=== PATIENT | male | born 1980 | race Caucasian/White ===

== ENCOUNTER 2016-06-11 17:11 | Emergency (ER) | payer MEDICAID, OTHER ==
[~2016-06-11] VITALS: Ht 188 cm; Wt 105.5 kg
[2016-06-11 17:26] VITALS: Ht 188 cm; Wt 105.5 kg
[2016-06-11] MEDS ORDERED: CLINDAMYCIN 300 MG INJ IM ONE (20:30)
--- NOTE | 2016-06-11 20:32 | ERD ---
ER Documentation Chief Complaint Date/Time DATE: 06/11/16 TIME: 20:28 Chief Complaint PT HAS INSECT BITE X 9 DAYS LEFT KNEE , RED AND SWOLLEN PAIN 9/10 HPI This is a 35-year-old male who presents the emergency department today complaining of left knee redness and swelling for the past 9 days. Patient states that he went to his clinic on Thursday and was given Naprosyn for gout. States he has not taken any other medications. Denies any fevers or chills. ROS All systems reviewed and are negative except as per history of present illness. Medications Home Meds Active Scripts Hydrocodone/Acetaminophen ([place] 5-325 Tablet) 1 Each Tablet, 1 TAB PO Q6H Y for PAIN, #12 TAB Prov:HANK LACY PA-C 06/11/16 Cephalexin* (Keflex*) 500 Mg Capsule, 500 MG PO QID for 7 Days, CAP Prov:HANK LACY PA-C 06/11/16 Sulfamethoxazole/Trimethoprim (Bactrim Ds Tablet) 1 Each Tablet, 1 EACH PO BID for 7 Days, TAB Prov:HANK LACY PA-C 06/11/16 PMhx/Soc Medical and Surgical Hx: pt denies Surgical Hx Hx Cardiac Disorders: Yes (HTN) Hx Alcohol Use: No Hx Substance Use: No Hx Tobacco Use: No Smoking Status: Never smoker Physical Exam Vitals Vital Signs Date Time Temp Pulse Resp B/P Pulse Ox O2 Delivery O2 Flow Rate FiO2 06/11/16 17:26 99.5 76 17 159/95 97 Physical Exam Const: NAD Head: Atraumatic Eyes: Normal Conjunctiva ENT: Normal External Ears, Nose and Mouth. Neck: Full range of motion..~ No meningismus. Resp: Clear to auscultation bilaterally Cardio: Regular rate and rhythm, no murmurs Abd: Soft, non tender, non distended. Normal bowel sounds Skin: Left knee with evidence of cellulitis beginning around the medial aspect of the knee and localized warmth. No purulent drainage. Back: No midline or flank tenderness Ext left leg lower extremity swelling over tibia. Full active range of motion at knee. Nontender gastroc. Pulses 2+. Distal neurovascularly intact. Evidence of cellulitis. Neur: Awake and alert Psych: Normal Mood and Affect Results 24 hrs Current Medications Medications (Trade) Dose Ordered Sig/Cade Route PRN Reason Start Time Stop Time Status Last Admin Dose Admin Clindamycin Phosphate (Cleocin) 600 mg ONCE ONCE IM 06/11/16 20:30 06/11/16 20:31 DC Procedures/MDM This is a 35-year-old male who presents to the emergency department today complaining of left leg redness and swelling for the past 9 days. I did see this patient in RN knee and determined that he needed further intervention. Patient had originally been seen at his clinic on Thursday and was diagnosed with gout given Naprosyn. Patient has full active range of motion of his knee and I have low suspicion for septic joint or gout. He is afebrile and otherwise well-appearing. Do not feel he requires laboratory work at this time. He does have some lower extremity swelling however he has good pulses and he has no calf tenderness and I have low suspicion that he has a DVT. Patient does have an area of localized erythema and warmth consistent with cellulitis. Low suspicion for deep space infection, sepsis. Do not feel the patient requires a Doppler ultrasound at this time. He is not short of breath. His oxygen saturation is 97% and he is not tachycardic. patient was given IM clindamycin here in the emergency department. Patient will begin a prescription for Bactrim and Keflex and instructed to return in 2 days. I did blaine the area and instruct him to return sooner if the area continues to spread or his symptoms worsen or he develops a fever. Patient was also given a prescription for [place] for severe pain otherwise he may continue taking his Naprosyn or Tylenol or Motrin. At this time the patient is stable for discharge and outpatient management. Patient should follow up with their PCP in the next 1-2 days. They may return to the emergency department sooner for any persistent or worsening of symptoms. Patient understood and agreed with the plan. Departure Diagnosis: Primary Impression: Cellulitis Site of cellulitis: extremity Site of cellulitis of extremity: lower extremity Laterality: left Qualified Code: L03.116 - Cellulitis of left lower extremity Condition: HANK Patel PA-C Jun 11, 2016 20:31
[2016-06-11] MEDS ORDERED: CEPH-443 PO (20:33)
[2016-06-11] MEDS ORDERED: SULF1TAB31 PO (20:33)
[2016-06-11] MEDS ORDERED: HYDR-906 PO (20:35)
[2016-06-11 21:51] VITALS: BP 161/97; PULSE 75; RESP 16; TEMP 98.8
== END 2016-06-11 21:52 | disposition home or self-care (01) ==
LOC: FTE 17:11
DX: L03.116 Cellulitis of left lower limb (principal); I10 Essential (primary) hypertension
CPT/HCPCS: 96372

== ENCOUNTER 2016-06-13 18:22 | Inpatient (IN) | payer MEDICAID ==
[~2016-06-13] VITALS: Ht 185.4 cm; Wt 103.0 kg
[~2016-06-13 18:22] MED LIST: CEPH-443 PO; HYDR-906 PO; SULF1TAB31 PO
[2016-06-13 18:31] VITALS: Ht 185.4 cm; Wt 103.0 kg
[2016-06-13] MEDS ORDERED: DICLOFENAC SODIUM 37.5 MG/ML VIAL IV STA (21:36)
[2016-06-13] MEDS ORDERED: morphine 4 MG/ML VIAL IV STA ×2 (21:36→23:52)
[2016-06-13] MEDS ORDERED: HYD25 PO (21:51)
[2016-06-13] MEDS ORDERED: PIPER-TAZO 3.375 GM IV (PMX) 100 ML IVPB ONE (22:00)
[2016-06-13] MEDS ORDERED: VANCOMYCIN 1 GM (PMX) 250 ML IVPB ONE (22:00)
[2016-06-13 22:53] LABS: ADD SCAN DIFF NO
[2016-06-13 23:03] LABS: BASOPHILS % 0.3 % (0.0-2.0); EOSINOPHILS # 0.2 10^3/ul (0.0-0.5); EOSINOPHILS % 1.9 % (0.0-7.0); HEMATOCRIT 41.7 % (42.0-52.0); LYMPHOCYTES # 2.2 10^3/ul (0.8-2.9); LYMPHOCYTES % 17.4 % (15.0-51.0); MEAN CORPUSCULAR HEMOGLOBIN 29.4 pg (29.0-33.0); MEAN CORPUSCULAR HGB CONC 33.6 g/dl (32.0-37.0); MEAN CORPUSCULAR VOLUME 87.6 fl (82.0-101.0); MEAN PLATELET VOLUME 9.3 fl (7.4-10.4); MONOCYTE # 1.1 10^3/ul (0.3-0.9); MONOCYTES % 8.7 % (0.0-11.0); NEUTROPHIL # 8.9 10^3/ul (1.6-7.5); NEUTROPHILS % 69.3 % (39.0-77.0); PLATELET COUNT 424 10^3/UL (140-415); RED BLOOD COUNT 4.76 10^6/ul (4.70-6.10); RED CELL DISTRIBUTION WIDTH 12.2 % (11.5-14.5); WHITE BLOOD COUNT 12.8 10^3/ul (4.8-10.8)
--- NOTE | 2016-06-13 23:22 | RADRPT ---
PROCEDURE: LEFT KNEE - 3 VIEWS CLINICAL INDICATION: 35-year-old male with left knee pain and cellulitis. TECHNIQUE: AP, lateral and tunnel view of the left knee were obtained. The images reviewed on a [employer] workstation. COMPARISON: None. FINDINGS: The bones appear intact, with no evidence of fracture, erosion, demineralization, or dislocation. Th e alignment of the femorotibial and patellofemoral joints appears normal. No joint space narrowing i s seen. There is prepatellar soft tissue swelling. No radiopaque foreign body is seen. IMPRESSION: 1. No acute fracture or dislocation. 2. Prepatellar soft tissue swelling. .Charlie Bautista MD, MD Date Time Electronically viewed and signed by .Charlie Bautista MD, on 06/13/2016 23:22 .M/
[2016-06-13 23:25] LABS: ALBUMIN 4.2 g/dl (3.3-4.9); ALBUMIN/GLOBULIN RATIO 1.07; BILIRUBIN,INDIRECT 0.3 mg/dl (0-1.1); BILIRUBIN,TOTAL 0.3 mg/dl (0.2-1.3); CALCIUM 9.4 mg/dl (8.4-10.2); CREATININE 1.35 mg/dl (0.61-1.24); POTASSIUM 3.7 mmol/L (3.5-5.1); TOTAL PROTEIN 8.1 g/dl (6.1-8.1)
[2016-06-14] MEDS ORDERED: ONDANSETRON 4 MG INJ IV PRN
[2016-06-14] MEDS ORDERED: DIPHENHYDRAMINE 50 MG CAP PO ONE
--- NOTE | 2016-06-14 00:04 | HP ---
Date/Time of Note Date/Time of Note DATE: 06/14/16 TIME: 00:02 Assessment/Plan VTE Prophylaxis VTE Prophylaxis Intervention: other (Lovenox) Assessment/Plan Assessment/Plan 1) Cellulitis of right leg with Leukocytosis s/p Failure of outpatient treatment - ADMIT to Med/Surg - IV Antibiotics 2) Leukocytosis - AM Labs: CBC 2) Renal insufficiency - IV Hydration - AM Labs: BMP HPI/ROS Admit Date/Time Admit Date/Time 06/13/16 Hx of Present Illness 35-year-old male comes for a week of right leg redness beginning along the lateral margin of the knee and upper leg and moving down. Had been seen in the clinic but had diagnosed him with gout. 2 days ago he came to the emergency room and received the appropriate outpatient therapy of Bactrim and Keflex. He also had marked. Joining around the demarcation of the infection. Is now spread down to almost the level of his ankle. He is also having some subjective fevers and chills at home. He does not have any pain on loadbearing but does have pain when he bends the knee because it is swollen. He has no history of diabetes or any other immunocompromise state. ER Course per ER Physician: None circumferential cellulitis right leg that is failed outpatient treatment has been spreading inferiorly. Now with mildly elevated white blood cell count and renal insufficiency. Vital signs are stable. Give the patient IV fluid as well as vancomycin and Zosyn to cover for anaerobic infection as well as MRSA. I believe septic joint is less likely an joint aspiration is contraindicated because the cellulitis does surround the anterior portion of the knee. He will be admitted to the [facility] floor for further treatment and evaluation with possible orthopedic involvement. PMH/Family/Social Past Medical History Medical History: hypertension Past Surgical History Left FA Social History Alcohol Use: none Smoking Status: Never smoker Drug Use: none Exam/Review of Systems Vital Signs Vitals Vital Signs Date Time Temp Pulse Resp B/P Pulse Ox O2 Delivery O2 Flow Rate FiO2 06/13/16 22:39 79 14 141/97 97 06/13/16 18:31 98.7 Exam Exam General: WD/WN male, alert and oriented, in no acute distress Eyes: Sclera White, EOMI HENT: Normocephalic/Atraumatic, External Ears/Nose Normal, Moist Mucus Membranes Neck: Supple, Trachea Midline Cardiovascular: Normal Rate, Regular Rhythm, Normal S1 and S2, No Murmur, No Extra Sounds. Radial pulse +2/4 Pulmonary: Clear to Auscultation Bilaterally, Normal Respiratory Effort, No Rales, Rhonchi or Wheezes Gastrointestinal: Normoactive Bowel Sounds, Soft, Non-Tender/Non-Distended, No Hepatosplenomegaly Appreciated, No Pulsatile Masses Urogenital: Deferred Musculoskeletal: Normal Muscle Bulk and Tone Neurological: CN II - XII Grossly Intact, Non-Focal, Speech Normal Integumentary: Normal Moisture and Temperature, Good Turgor, No Jaundice, Right leg with edema surrounding the right knee with erythema and calor extending from the level just above the knee down to the lower anterior anderson Lymphatic: No Cervical Lymphadenopathy Psychiatric: Appropriate Mood and Affect, Good Eye Contact Labs Result Diagram: 06/13/16219906/13/162199 Medications Medications Home Meds Active Scripts Hydrocodone/Acetaminophen ([place] 5-325 Tablet) 1 Each Tablet, 1 TAB PO Q6H Y for PAIN, #12 TAB Prov:HANK LACY PA-C 06/11/16 Cephalexin* (Keflex*) 500 Mg Capsule, 500 MG PO QID for 7 Days, CAP Prov:HANK LACY PA-C 06/11/16 Sulfamethoxazole/Trimethoprim* (Bactrim Ds* Tablet) 1 Each Tablet, 1 EACH PO BID for 7 Days, TAB Prov:HANK LACY PA-C 06/11/16 Reported Medications Hydrochlorothiazide* (Hydrochlorothiazide*) 25 Mg Tab, 25 MG PO DAILY, #30 TAB 06/13/16 Current Medications Medications (Trade) Dose Ordered Sig/Cade Route PRN Reason Start Time Stop Time Status Last Admin Dose Admin Vancomycin HCl (Vancocin) 250 ml @ 125 mls/hr ONCE ONCE IVPB 06/13/16 22:00 06/13/16 23:59 DC 06/13/16 21:55 Diclofenac Sodium 37.5 mg 37.5 mg ONCE STAT IV 06/13/16 21:36 06/13/16 21:41 DC 06/13/16 21:56 Piperacillin Sod/ Tazobactam Sod (Zosyn 3.375gm/ 100 ml (Pmx)) 100 ml @ 200 mls/hr ONCE ONCE IVPB 06/13/16 22:00 06/13/16 22:29 DC 06/13/16 21:55 Morphine Sulfate (morphine) 4 mg ONCE STAT IV 06/13/16 21:36 06/13/16 21:41 DC 06/13/16 21:56 Ondansetron HCl (Zofran Inj) 4 mg BRIDGE ORDER PRN IV NAUSEA AND/OR VOMITING 06/14/16 00:00 06/14/16 23:59 Acetaminophen (Tylenol Tab) 650 mg ER BRIDGE PRN PO MILD PAIN/FEVER 06/14/16 00:00 06/14/16 23:59 Morphine Sulfate (morphine) 4 mg ONCE STAT IV 06/13/16 23:52 06/13/16 23:55 DC Procedures Procedures Laboratory Tests Test 06/13/16 22:00 White Blood Count 12.810^3/ul Red Blood Count 4.7610^6/ul Hemoglobin 14.0g/dl Hematocrit 41.7% Mean Corpuscular Volume 87.6fl Mean Corpuscular Hemoglobin 29.4pg Mean Corpuscular Hemoglobin Concent 33.6g/dl Red Cell Distribution Width 12.2% Platelet Count 83437^3/UL Mean Platelet Volume 9.3fl Neutrophils % 69.3% Lymphocytes % 17.4% Monocytes % 8.7% Eosinophils % 1.9% Basophils % 0.3% Nucleated Red Blood Cells % 0.0/100WBC Neutrophils # 8.910^3/ul Lymphocytes # 2.210^3/ul Monocytes # 1.110^3/ul Eosinophils # 0.210^3/ul Basophils # 0.010^3/ul Nucleated Red Blood Cells # 0.010^3/ul Sodium Level 135mmol/L Potassium Level 3.7mmol/L Chloride Level 95mmol/L Carbon Dioxide Level 28mmol/L Anion Gap 16 Blood Urea Nitrogen 20mg/dl Creatinine 1.35mg/dl Glucose Level 102mg/dl Calcium Level 9.4mg/dl Total Bilirubin 0.3mg/dl Direct Bilirubin 0.00mg/dl Indirect Bilirubin 0.3mg/dl Aspartate Amino Transf (AST/SGOT) 30IU/L Alanine Aminotransferase (ALT/SGPT) 53IU/L Alkaline Phosphatase 88IU/L Total Protein 8.1g/dl Albumin 4.2g/dl Globulin 3.90g/dl Albumin/Globulin Ratio 1.07 PROCEDURE: LEFT KNEE - 3 VIEWS CLINICAL INDICATION: 35-year-old male with left knee pain and cellulitis. TECHNIQUE: AP, lateral and tunnel view of the left knee were obtained. The images reviewed on a PACS workstation. COMPARISON: None. FINDINGS: The bones appear intact, with no evidence of fracture, erosion, demineralization , or dislocation. The alignment of the femorotibial and patellofemoral joints appears normal. No joint space narrowing is seen. There is prepatellar soft tissue swelling. No radiopaque foreign body is seen. IMPRESSION: 1. No acute fracture or dislocation. 2. Prepatellar soft tissue swelling. FARZANA CASTRO DO Jun 14, 2016 00:04 Gastrointestinal: Normoactive Bowel Sounds, Soft, Non-Tender/Non-Distended, No Hepatosplenomegaly Appreciated, No Pulsatile Masses Urogenital: Deferred Musculoskeletal: Normal Muscle Bulk and Tone Neurological: CN II - XII Grossly Intact, Non-Focal, Speech Normal Integumentary: Normal Moisture and Temperature, Good Turgor, No Jaundice, No Rash Lymphatic: No Cervical Lymphadenopathy Psychiatric: Appropriate Mood and Affect, Good Eye Contact Labs Result Diagram: 06/13/16219906/13/162199 Procedures Procedures PROCEDURE: LEFT KNEE - 3 VIEWS CLINICAL INDICATION: 35-year-old male with left knee pain and cellulitis. TECHNIQUE: AP, lateral and tunnel view of the left knee were obtained. The images reviewed on a PACS workstation. COMPARISON: None. FINDINGS: The bones appear intact, with no evidence of fracture, erosion, demineralization , or dislocation. The alignment of the femorotibial and patellofemoral joints appears normal. No joint space narrowing is seen. There is prepatellar soft tissue swelling. No radiopaque foreign body is seen.
--- NOTE | 2016-06-14 00:42 | ERA ---
ER Documentation Chief Complaint Date/Time DATE: 06/14/16 TIME: 00:13 Chief Complaint swelling/redness right lower leg, here 2 days ago, states getting worse HPI 35-year-old male comes for a week of right leg redness beginning along the lateral margin of the knee and upper leg and moving down. Had been seen in the clinic but had diagnosed him with gout. 2 days ago he came to the emergency room and received the appropriate outpatient therapy of Bactrim and Keflex. He also had marked. Joining around the demarcation of the infection. Is now spread down to almost the level of his ankle. He is also having some subjective fevers and chills at home. He does not have any pain on loadbearing but does have pain when he bends the knee because it is swollen. He has no history of diabetes or any other immunocompromise state. ROS All systems reviewed and are negative except as per history of present illness. Medications Home Meds Active Scripts Hydrocodone/Acetaminophen ([place] 5-325 Tablet) 1 Each Tablet, 1 TAB PO Q6H Y for PAIN, #12 TAB Prov:HANK LACY PA-C 06/11/16 Cephalexin* (Keflex*) 500 Mg Capsule, 500 MG PO QID for 7 Days, CAP Prov:HANK ALCY PA-C 06/11/16 Sulfamethoxazole/Trimethoprim* (Bactrim Ds* Tablet) 1 Each Tablet, 1 EACH PO BID for 7 Days, TAB Prov:HANK LACY PA-C 06/11/16 Reported Medications Hydrochlorothiazide* (Hydrochlorothiazide*) 25 Mg Tab, 25 MG PO DAILY, #30 TAB 06/13/16 Allergies Allergies: Coded Allergies: No Known Drug Allergies (Verified Allergy, Unknown, 06/13/16) PMhx/Soc History of Surgery: Yes (left FA sx) Anesthesia Reaction: No Hx Neurological Disorder: No Hx Respiratory Disorders: No Hx Cardiac Disorders: Yes (HTN) Hx Psychiatric Problems: No Hx Miscellaneous Medical Probl: No Hx Alcohol Use: No Hx Substance Use: No Hx Tobacco Use: No Smoking Status: Never smoker Physical Exam Vitals Vital Signs Date Time Temp Pulse Resp B/P Pulse Ox O2 Delivery O2 Flow Rate FiO2 06/13/16 22:39 79 14 141/97 97 06/13/16 18:31 98.7 92 20 148/82 98 Physical Exam Const: [] No distress Head: Atraumatic Eyes: Normal Conjunctiva ENT: Normal External Ears, Nose and Mouth. Neck: Full range of motion..~ No meningismus. Resp: Clear to auscultation bilaterally Cardio: Regular rate and rhythm, no murmurs Abd: Soft, non tender, non distended. Normal bowel sounds Skin: No petechiae or rashes Back: No midline or flank tenderness Ext: Right leg with edema surrounding the right knee with erythema and calor extending from the level just above the knee down to the lower anterior anderson. Distal pulses intact all 4 extremities. Neur: Awake and alert and oriented 3, no focal deficits. Psych: Normal Mood and Affect Result Diagram: 06/13/16219906/13/162199 Results 24 hrs Laboratory Tests Test 06/13/16 22:00 White Blood Count 12.810^3/ul Red Blood Count 4.7610^6/ul Hemoglobin 14.0g/dl Hematocrit 41.7% Mean Corpuscular Volume 87.6fl Mean Corpuscular Hemoglobin 29.4pg Mean Corpuscular Hemoglobin Concent 33.6g/dl Red Cell Distribution Width 12.2% Platelet Count 20310^3/UL Mean Platelet Volume 9.3fl Neutrophils % 69.3% Lymphocytes % 17.4% Monocytes % 8.7% Eosinophils % 1.9% Basophils % 0.3% Nucleated Red Blood Cells % 0.0/100WBC Neutrophils # 8.910^3/ul Lymphocytes # 2.210^3/ul Monocytes # 1.110^3/ul Eosinophils # 0.210^3/ul Basophils # 0.010^3/ul Nucleated Red Blood Cells # 0.010^3/ul Sodium Level 135mmol/L Potassium Level 3.7mmol/L Chloride Level 95mmol/L Carbon Dioxide Level 28mmol/L Anion Gap 16 Blood Urea Nitrogen 20mg/dl Creatinine 1.35mg/dl Glucose Level 102mg/dl Calcium Level 9.4mg/dl Total Bilirubin 0.3mg/dl Direct Bilirubin 0.00mg/dl Indirect Bilirubin 0.3mg/dl Aspartate Amino Transf (AST/SGOT) 30IU/L Alanine Aminotransferase (ALT/SGPT) 53IU/L Alkaline Phosphatase 88IU/L Total Protein 8.1g/dl Albumin 4.2g/dl Globulin 3.90g/dl Albumin/Globulin Ratio 1.07 Current Medications Medications (Trade) Dose Ordered Sig/Cade Route PRN Reason Start Time Stop Time Status Last Admin Dose Admin Vancomycin HCl (Vancocin) 250 ml @ 125 mls/hr ONCE ONCE IVPB 06/13/16 22:00 06/13/16 23:59 DC 06/13/16 21:55 Diclofenac Sodium 37.5 mg 37.5 mg ONCE STAT IV 06/13/16 21:36 06/13/16 21:41 DC 06/13/16 21:56 Piperacillin Sod/ Tazobactam Sod (Zosyn 3.375gm/ 100 ml (Pmx)) 100 ml @ 200 mls/hr ONCE ONCE IVPB 06/13/16 22:00 06/13/16 22:29 DC 06/13/16 21:55 Morphine Sulfate (morphine) 4 mg ONCE STAT IV 06/13/16 21:36 06/13/16 21:41 DC 06/13/16 21:56 Ondansetron HCl (Zofran Inj) 4 mg BRIDGE ORDER PRN IV NAUSEA AND/OR VOMITING 06/14/16 00:00 06/14/16 23:59 Acetaminophen (Tylenol Tab) 650 mg ER BRIDGE PRN PO MILD PAIN/FEVER 06/14/16 00:00 06/14/16 23:59 Morphine Sulfate (morphine) 4 mg ONCE STAT IV 06/13/16 23:52 06/13/16 23:55 DC Procedures/MDM None circumferential cellulitis right leg that is failed outpatient treatment has been spreading inferiorly. Now with mildly elevated white blood cell count and renal insufficiency. Vital signs are stable. Give the patient IV fluid as well as vancomycin and Zosyn to cover for anaerobic infection as well as MRSA. I believe septic joint is less likely an joint aspiration is contraindicated because the cellulitis does surround the anterior portion of the knee. [facility] for further treatment and evaluation with possible orthopedic involvement. X-ray right knee interpretation: No fracture dislocation, soft tissue swelling superior to the patella. Departure Diagnosis: Primary Impression: Cellulitis of right leg Additional Impressions: Failure of outpatient treatment Renal insufficiency Condition: Stable DENA CURRAN DO Jun 14, 2016 00:42
[2016-06-14] MEDS ORDERED: SOD CHLORIDE 0.9% 1,000 ML IV ONE (01:00)
[2016-06-14 01:36] VITALS: TEMP 97.9
[2016-06-14] MEDS ORDERED: VANCOMYCIN IV PER PHARMACY XX SCH (02:00)
[2016-06-14] MEDS ORDERED: VANCOMYCIN 1 GM in NS 250 ML IVPB ONE (02:00)
[2016-06-14] MEDS ORDERED: OXYCODONE/ACETAMINOPHEN (5/325) TAB PO PRN (02:00)
[2016-06-14] MEDS ORDERED: ACETAMINOPHEN 325 MG TAB PO PRN ×2 (02:00)
[2016-06-14] MEDS ORDERED: NACL 0.9% 3 ML SYG IV SCH (02:00)
[2016-06-14] MEDS ORDERED: ONDANSETRON 4 MG TAB PO PRN (02:00)
[2016-06-14 03:41] VITALS: BP 160/90; RESP 18
[2016-06-14] MEDS: PIPER-TAZO 3.375 GM IV (PMX) 100 ML IVPB SCH ×3 (05:48→17:43)
[2016-06-14 07:46] VITALS: BP 141/83; RESP 18
[2016-06-14] MEDS: VANCOMYCIN 1.5 GM in SOD CHLORIDE 0.9% 250 ML IVPB SCH ×2 (08:33→20:42)
[2016-06-14] MEDS: FAMOTIDINE 20 MG TAB PO SCH ×2 (08:33→20:41)
[2016-06-14] MEDS: HYDROCHLOROTHIAZIDE 25 MG TAB PO SCH (08:34)
[2016-06-14] MEDS: ENOXAPARIN 40 MG/0.4 ML SYG SC SCH (08:40)
[2016-06-14] MEDS: OXYCODONE/ACETAMINOPHEN (5/325) TAB PO PRN ×2 (13:32→20:41)
[2016-06-14 19:31] VITALS: BP 148/88; PULSE 69; RESP 18
[2016-06-15] MEDS: PIPER-TAZO 3.375 GM IV (PMX) 100 ML IVPB SCH ×4 (00:13→17:31)
[2016-06-15 05:57] LABS: ADD SCAN DIFF NO
[2016-06-15 06:13] LABS: CALCIUM 8.8 mg/dl (8.4-10.2); CREATININE 1.17 mg/dl (0.61-1.24); POTASSIUM 4.7 mmol/L (3.5-5.1)
[2016-06-15 07:55] VITALS: BP 130/80; RESP 18
[2016-06-15] MEDS: OXYCODONE/ACETAMINOPHEN (5/325) TAB PO PRN ×2 (08:15→17:33)
[2016-06-15] MEDS: FAMOTIDINE 20 MG TAB PO SCH ×2 (08:15→20:36)
[2016-06-15] MEDS: HYDROCHLOROTHIAZIDE 25 MG TAB PO SCH (08:16)
[2016-06-15] MEDS: ENOXAPARIN 40 MG/0.4 ML SYG SC SCH (09:00)
[2016-06-15 09:45] LABS: BASOPHILS % 0.3 % (0.0-2.0); EOSINOPHILS # 0.3 10^3/ul (0.0-0.5); EOSINOPHILS % 2.9 % (0.0-7.0); HEMATOCRIT 40.6 % (42.0-52.0); HEMOGLOBIN 13.1 g/dl (14.0-18.0); LYMPHOCYTES # 1.9 10^3/ul (0.8-2.9); LYMPHOCYTES % 18.5 % (15.0-51.0); MEAN CORPUSCULAR HEMOGLOBIN 28.9 pg (29.0-33.0); MEAN CORPUSCULAR HGB CONC 32.3 g/dl (32.0-37.0); MEAN CORPUSCULAR VOLUME 89.6 fl (82.0-101.0); MEAN PLATELET VOLUME 9.8 fl (7.4-10.4); MONOCYTE # 0.9 10^3/ul (0.3-0.9); MONOCYTES % 8.5 % (0.0-11.0); NEUTROPHIL # 7.1 10^3/ul (1.6-7.5); NEUTROPHILS % 68.1 % (39.0-77.0); PLATELET COUNT 413 10^3/UL (140-415); RED BLOOD COUNT 4.53 10^6/ul (4.70-6.10); RED CELL DISTRIBUTION WIDTH 12.6 % (11.5-14.5); WHITE BLOOD COUNT 10.4 10^3/ul (4.8-10.8)
[2016-06-15] MEDS: VANCOMYCIN 1.5 GM in SOD CHLORIDE 0.9% 250 ML IVPB SCH ×2 (10:20→20:36)
--- NOTE | 2016-06-15 17:35 | PN ---
Date/Time of Note Date/Time of Note DATE: 06/15/16 TIME: 17:28 Assessment/Plan VTE Prophylaxis VTE Prophylaxis Intervention: LMWH Lines/Catheters IV Catheter Type (from Nrs): Saline Lock Assessment/Plan Chief Complaint/Hosp Course 1. Cellulitis of right leg -cont Abx -consider Ortho consult for I+D 2. DULCE MARIA-resolved PPx- Lovenox Problems: Subjective 24 Hr Interval Summary Constitutional: no complaints Musculoskeletal: bone/joint pain Exam/Review of Systems Vital Signs Vitals Vital Signs Date Time Temp Pulse Resp B/P Pulse Ox O2 Delivery O2 Flow Rate FiO2 06/15/16 07:55 98.1 64 18 130/80 100 06/14/16 19:31 Room Air Intake and Output 06/14/16 06/14/16 06/15/16 15:00 23:00 07:00 Intake Total 350 ml 1540 ml 450 ml Balance 350 ml 1540 ml 450 ml Exam Constitutional: alert, oriented Respiratory: clear to auscultation Cardiovascular: regular rate and rhythm Gastrointestinal: soft, No distended Musculoskeletal: No nl extremities to inspection Results Result Diagram: 06/15/16 0500 06/15/16 0500 Results 24 hrs Laboratory Tests Test 06/15/16 05:00 06/15/16 08:35 White Blood Count 10.4 Red Blood Count 4.53 L Hemoglobin 13.1 L Hematocrit 40.6 L Mean Corpuscular Volume 89.6 Mean Corpuscular Hemoglobin 28.9 L Mean Corpuscular Hemoglobin Concent 32.3 Red Cell Distribution Width 12.6 Platelet Count 413 Mean Platelet Volume 9.8 Neutrophils % 68.1 Lymphocytes % 18.5 Monocytes % 8.5 Eosinophils % 2.9 Basophils % 0.3 Nucleated Red Blood Cells % 0.0 Neutrophils # 7.1 Lymphocytes # 1.9 Monocytes # 0.9 Eosinophils # 0.3 Basophils # 0.0 Nucleated Red Blood Cells # 0.0 Sodium Level 137 Potassium Level 4.7 Chloride Level 103 Carbon Dioxide Level 29 Anion Gap 10 # Blood Urea Nitrogen 15 Creatinine 1.17 Glucose Level 95 Calcium Level 8.8 Vancomycin Level Trough 11.6 Medications Medications Current Medications Ondansetron HCl (Zofran Tab) 4 mg Q6H PRN PO NAUSEA AND/OR VOMITING; Start at 02:00 Acetaminophen (Tylenol Tab) 650 mg Q6H PRN PO PAIN LEVEL 1-3 OR FEVER; Start at 02:00 Oxycodone/ Acetaminophen (Percocet (5/ 325)) 1 tab Q6H PRN PO MODERATE PAIN LEVEL 4-6; Start 06/14/16 at 02:00 Oxycodone/ Acetaminophen (Percocet (5/ 325)) 2 tab Q6H PRN PO SEVERE PAIN LEVEL 7-10 Last administered on 06/15/16 08:15; Admin Dose 2 TAB; Start at 02:00 Famotidine (Pepcid) 20 mg Q12 PO Last administered on 06/15/16 08:15; Admin Dose 20 MG; Start 06/14/16 at 09:00 Enoxaparin Sodium (Lovenox) 40 mg DAILY SC Last administered on 06/15/16 09:00 ; Admin Dose 40 MG; Start 06/14/16 at 09:00 Hydrochlorothiazide 25 mg 25 mg DAILY PO Last administered on 06/15/16 08:16; Admin Dose 25 MG; Start 06/14/16 at 09:00 Piperacillin Sod/ Tazobactam Sod 100 ml @ 200 mls/hr Q6 IVPB Last administered on 06/15/16 13:24; Admin Dose 200 MLS/HR; Start 06/14/16 at 06:00 Vancomycin HCl/ Sodium Chloride (Vancocin/NS) 250 ml @ 83.333 mls/ hr Q12H IVPB Last administered on 06/15/16 10:20; Admin Dose 83.333 MLS/HR; Start at 09:00 LUCA JACOBO Jun 15, 2016 17:35
[2016-06-15 20:00] VITALS: BP 142/94; PULSE 64; RESP 18
[2016-06-16] MEDS: PIPER-TAZO 3.375 GM IV (PMX) 100 ML IVPB SCH ×4 (00:25→18:06)
[2016-06-16 05:32] LABS: ADD SCAN DIFF NO
[2016-06-16 05:36] LABS: BASOPHILS % 0.3 % (0.0-2.0); EOSINOPHILS # 0.3 10^3/ul (0.0-0.5); EOSINOPHILS % 2.9 % (0.0-7.0); HEMATOCRIT 39.3 % (42.0-52.0); HEMOGLOBIN 13.2 g/dl (14.0-18.0); LYMPHOCYTES # 1.9 10^3/ul (0.8-2.9); LYMPHOCYTES % 16.3 % (15.0-51.0); MEAN CORPUSCULAR HEMOGLOBIN 29.8 pg (29.0-33.0); MEAN CORPUSCULAR HGB CONC 33.6 g/dl (32.0-37.0); MEAN CORPUSCULAR VOLUME 88.7 fl (82.0-101.0); MEAN PLATELET VOLUME 9.1 fl (7.4-10.4); MONOCYTE # 0.8 10^3/ul (0.3-0.9); MONOCYTES % 6.9 % (0.0-11.0); NEUTROPHIL # 8.3 10^3/ul (1.6-7.5); NEUTROPHILS % 72.4 % (39.0-77.0); PLATELET COUNT 426 10^3/UL (140-415); RED BLOOD COUNT 4.43 10^6/ul (4.70-6.10); RED CELL DISTRIBUTION WIDTH 12.2 % (11.5-14.5); WHITE BLOOD COUNT 11.5 10^3/ul (4.8-10.8)
[2016-06-16 05:53] LABS: CALCIUM 9.3 mg/dl (8.4-10.2); CREATININE 1.11 mg/dl (0.61-1.24); MAGNESIUM 2.2 mg/dl (1.7-2.5); POTASSIUM 4.7 mmol/L (3.5-5.1)
[2016-06-16 07:42] VITALS: BP 133/75; RESP 20
[2016-06-16] MEDS: FAMOTIDINE 20 MG TAB PO SCH ×2 (08:27→20:56)
[2016-06-16] MEDS: HYDROCHLOROTHIAZIDE 25 MG TAB PO SCH (08:27)
[2016-06-16] MEDS: VANCOMYCIN 1.5 GM in SOD CHLORIDE 0.9% 250 ML IVPB SCH ×2 (08:28→20:56)
[2016-06-16] MEDS: OXYCODONE/ACETAMINOPHEN (5/325) TAB PO PRN (08:30)
[2016-06-16] MEDS: ENOXAPARIN 40 MG/0.4 ML SYG SC SCH (08:48)
--- NOTE | 2016-06-16 14:08 | PN ---
Date/Time of Note Date/Time of Note DATE: 06/16/16 TIME: 14:07 Assessment/Plan VTE Prophylaxis VTE Prophylaxis Intervention: LMWH Lines/Catheters IV Catheter Type (from Nrs): Saline Lock Urinary Cath still in place: No Assessment/Plan Chief Complaint/Hosp Course 1. Cellulitis of right knee -cont Abx -Surgical consult for I+D 2. DULCE MARIA-resolved PPx- Lovenox Problems: Subjective 24 Hr Interval Summary Musculoskeletal: bone/joint pain Exam/Review of Systems Vital Signs Vitals Vital Signs Date Time Temp Pulse Resp B/P Pulse Ox O2 Delivery O2 Flow Rate FiO2 06/16/16 07:42 98.4 63 20 133/75 98 06/15/16 20:00 Room Air Intake and Output 06/15/16 06/15/16 06/16/16 15:00 23:00 07:00 Intake Total 350 ml 1420 ml 450 ml Balance 350 ml 1420 ml 450 ml Exam Constitutional: alert, oriented Respiratory: clear to auscultation Cardiovascular: regular rate and rhythm Gastrointestinal: soft, No distended Musculoskeletal: No nl extremities to inspection Results Result Diagram: 06/16/16 0512 06/16/16 0512 Results 24 hrs Laboratory Tests Test 06/16/16 05:12 White Blood Count 11.5 H Red Blood Count 4.43 L Hemoglobin 13.2 L Hematocrit 39.3 L Mean Corpuscular Volume 88.7 Mean Corpuscular Hemoglobin 29.8 Mean Corpuscular Hemoglobin Concent 33.6 Red Cell Distribution Width 12.2 Platelet Count 426 H Mean Platelet Volume 9.1 Neutrophils % 72.4 Lymphocytes % 16.3 Monocytes % 6.9 Eosinophils % 2.9 Basophils % 0.3 Nucleated Red Blood Cells % 0.0 Neutrophils # 8.3 H Lymphocytes # 1.9 Monocytes # 0.8 Eosinophils # 0.3 Basophils # 0.0 Nucleated Red Blood Cells # 0.0 Sodium Level 138 Potassium Level 4.7 Chloride Level 103 Carbon Dioxide Level 29 Anion Gap 11 Blood Urea Nitrogen 14 Creatinine 1.11 Glucose Level 99 Calcium Level 9.3 Magnesium Level 2.2 Medications Medications Current Medications Ondansetron HCl (Zofran Tab) 4 mg Q6H PRN PO NAUSEA AND/OR VOMITING; Start at 02:00 Acetaminophen (Tylenol Tab) 650 mg Q6H PRN PO PAIN LEVEL 1-3 OR FEVER; Start at 02:00 Oxycodone/ Acetaminophen (Percocet (5/ 325)) 1 tab Q6H PRN PO MODERATE PAIN LEVEL 4-6; Start 06/14/16 at 02:00 Oxycodone/ Acetaminophen (Percocet (5/ 325)) 2 tab Q6H PRN PO SEVERE PAIN LEVEL 7-10 Last administered on 06/16/16 08:30; Admin Dose 2 TAB; Start at 02:00 Famotidine (Pepcid) 20 mg Q12 PO Last administered on 06/16/16 08:27; Admin Dose 20 MG; Start 06/14/16 at 09:00 Enoxaparin Sodium (Lovenox) 40 mg DAILY SC Last administered on 06/16/16 08:48 ; Admin Dose 40 MG; Start 06/14/16 at 09:00 Hydrochlorothiazide 25 mg 25 mg DAILY PO Last administered on 06/16/16 08:27; Admin Dose 25 MG; Start 06/14/16 at 09:00 Piperacillin Sod/ Tazobactam Sod 100 ml @ 200 mls/hr Q6 IVPB Last administered on 06/16/16 12:52; Admin Dose 200 MLS/HR; Start 06/14/16 at 06:00 Vancomycin HCl/ Sodium Chloride (Vancocin/NS) 250 ml @ 83.333 mls/ hr Q12H IVPB Last administered on 06/16/16 08:28; Admin Dose 83.333 MLS/HR; Start at 09:00 LUCA JACOBO Jun 16, 2016 14:08
[2016-06-16] MEDS ORDERED: LIDOCAINE 1% (MDV) 20 ML INJ SC STA (18:47)
[2016-06-16 19:00] VITALS: BP 137/94; RESP 18
[2016-06-17] MEDS: PIPER-TAZO 3.375 GM IV (PMX) 100 ML IVPB SCH ×4 (00:15→18:05)
[2016-06-17 06:25] LABS: ADD SCAN DIFF NO
[2016-06-17 06:28] LABS: BASOPHILS % 0.5 % (0.0-2.0); EOSINOPHILS # 0.3 10^3/ul (0.0-0.5); EOSINOPHILS % 4.2 % (0.0-7.0); HEMATOCRIT 41.1 % (42.0-52.0); HEMOGLOBIN 13.5 g/dl (14.0-18.0); LYMPHOCYTES # 2.1 10^3/ul (0.8-2.9); LYMPHOCYTES % 25.2 % (15.0-51.0); MEAN CORPUSCULAR HEMOGLOBIN 28.9 pg (29.0-33.0); MEAN CORPUSCULAR HGB CONC 32.8 g/dl (32.0-37.0); MEAN PLATELET VOLUME 9.1 fl (7.4-10.4); MONOCYTE # 0.7 10^3/ul (0.3-0.9); MONOCYTES % 8.7 % (0.0-11.0); NEUTROPHIL # 4.9 10^3/ul (1.6-7.5); NEUTROPHILS % 60.2 % (39.0-77.0); PLATELET COUNT 426 10^3/UL (140-415); RED BLOOD COUNT 4.67 10^6/ul (4.70-6.10); RED CELL DISTRIBUTION WIDTH 12.3 % (11.5-14.5); WHITE BLOOD COUNT 8.2 10^3/ul (4.8-10.8)
[2016-06-17 07:25] VITALS: BP 124/84; RESP 20
[2016-06-17] MEDS: VANCOMYCIN 1.5 GM in SOD CHLORIDE 0.9% 250 ML IVPB SCH ×2 (09:19→21:15)
[2016-06-17] MEDS: FAMOTIDINE 20 MG TAB PO SCH ×2 (09:20→21:15)
[2016-06-17] MEDS: HYDROCHLOROTHIAZIDE 25 MG TAB PO SCH (09:20)
[2016-06-17] MEDS: ENOXAPARIN 40 MG/0.4 ML SYG SC SCH (09:27)
[2016-06-17] MEDS: OXYCODONE/ACETAMINOPHEN (5/325) TAB PO PRN ×2 (09:38→18:18)
--- NOTE | 2016-06-17 18:46 | PN ---
Date/Time of Note Date/Time of Note DATE: 06/17/16 TIME: 18:46 Assessment/Plan VTE Prophylaxis VTE Prophylaxis Intervention: LMWH Lines/Catheters IV Catheter Type (from Nrs): Saline Lock Urinary Cath still in place: No Assessment/Plan Chief Complaint/Hosp Course 1. Cellulitis of right knee -cont Abx -Orthopedic consult for I+D 2. DULCE MARIA-resolved PPx- Lovenox Problems: Subjective 24 Hr Interval Summary Musculoskeletal: bone/joint pain Exam/Review of Systems Vital Signs Vitals Vital Signs Date Time Temp Pulse Resp B/P Pulse Ox O2 Delivery O2 Flow Rate FiO2 06/17/16 07:25 97.8 55 20 124/84 100 06/15/16 20:00 Room Air Intake and Output 06/16/16 06/16/16 06/17/16 15:00 23:00 07:00 Intake Total 350 ml 1200 ml 1150 ml Balance 350 ml 1200 ml 1150 ml Exam Constitutional: alert Respiratory: clear to auscultation Cardiovascular: regular rate and rhythm Gastrointestinal: soft, No distended Musculoskeletal: No nl extremities to inspection Results Result Diagram: 06/17/16 0540 06/16/16 0512 Results 24 hrs Laboratory Tests Test 06/17/16 05:40 White Blood Count 8.2 # Red Blood Count 4.67 L Hemoglobin 13.5 L Hematocrit 41.1 L Mean Corpuscular Volume 88.0 Mean Corpuscular Hemoglobin 28.9 L Mean Corpuscular Hemoglobin Concent 32.8 Red Cell Distribution Width 12.3 Platelet Count 426 H Mean Platelet Volume 9.1 Neutrophils % 60.2 Lymphocytes % 25.2 Monocytes % 8.7 Eosinophils % 4.2 Basophils % 0.5 Nucleated Red Blood Cells % 0.0 Neutrophils # 4.9 Lymphocytes # 2.1 Monocytes # 0.7 Eosinophils # 0.3 Basophils # 0.0 Nucleated Red Blood Cells # 0.0 Medications Medications Current Medications Ondansetron HCl (Zofran Tab) 4 mg Q6H PRN PO NAUSEA AND/OR VOMITING; Start at 02:00 Acetaminophen (Tylenol Tab) 650 mg Q6H PRN PO PAIN LEVEL 1-3 OR FEVER; Start at 02:00 Oxycodone/ Acetaminophen (Percocet (5/ 325)) 1 tab Q6H PRN PO MODERATE PAIN LEVEL 4-6; Start 06/14/16 at 02:00 Oxycodone/ Acetaminophen (Percocet (5/ 325)) 2 tab Q6H PRN PO SEVERE PAIN LEVEL 7-10 Last administered on 06/17/16 18:18; Admin Dose 2 TAB; Start at 02:00 Famotidine (Pepcid) 20 mg Q12 PO Last administered on 06/17/16 09:20; Admin Dose 20 MG; Start 06/14/16 at 09:00 Enoxaparin Sodium (Lovenox) 40 mg DAILY SC Last administered on 06/17/16 09:27 ; Admin Dose 40 MG; Start 06/14/16 at 09:00 Hydrochlorothiazide 25 mg 25 mg DAILY PO Last administered on 06/17/16 09:20; Admin Dose 25 MG; Start 06/14/16 at 09:00 Piperacillin Sod/ Tazobactam Sod 100 ml @ 200 mls/hr Q6 IVPB Last administered on 06/17/16 18:05; Admin Dose 200 MLS/HR; Start 06/14/16 at 06:00 Vancomycin HCl/ Sodium Chloride (Vancocin/NS) 250 ml @ 83.333 mls/ hr Q12H IVPB Last administered on 06/17/16 09:19; Admin Dose 83.333 MLS/HR; Start at 09:00 Miscellaneous Information (*Rx Drug Level Order Reminder*) VANCO TROUGH @ 0, 800 ON... ONCE ONCE XX ; Start 06/18/16 at 08:00; Stop 06/18/16 at 08:01 Neomycin/ Polymyxin/ Bacitracin (Neosporin Topical Oint) 1 applic BID TOP ; Start 06/17/16 at 21:00 LUCA JACOBO Jun 17, 2016 18:46
[2016-06-17 20:16] VITALS: BP 149/98; RESP 19
[2016-06-17] MEDS: NEOMYC/POLYMYX/BACIT 30 GM OINT TOP SCH (21:15)
[2016-06-18] MEDS: PIPER-TAZO 3.375 GM IV (PMX) 100 ML IVPB SCH ×2 (00:32→05:59)
--- NOTE | 2016-06-18 02:45 | SP ---
DATE OF PROCEDURE: The patient is agreeable to have a procedure at the bedside. DESCRIPTION OF PROCEDURE: After sterile prep with Betadine, a 1 cm incision made over the area of t he pustule. There is no purulence noted. An 18-gauge needle inserted in this area in the prepatell ar bursa of the knee and there does not appear to be any evidence of fluid and no fluid aspirated fo r culture. IMPRESSION: The patient has no evidence at this time for an abscess. It is most likely consistent with cellulitis. RECOMMENDATION: Recommend continued antibiotic treatment. No further surgical intervention anticip ated. Dictated By: GISELA HOLLEY/NTS Conf#: [id number] DID#: [id number]
--- NOTE | 2016-06-18 03:56 | CONS ---
DATE OF ADMISSION: 06/13/2016 DATE OF CONSULTATION: 06/16/2016 HISTORY OF PRESENT ILLNESS: The patient is a 35-year-old male who presents with pain and swelling o f the right knee. The patient denies any injuries. The patient reports that he noticed pain on the knee followed by swelling and redness. The patient admitted for evaluation. X-rays were unremarka ble. PHYSICAL EXAMINATION: On examination, the patient is ambulatory. He is comfortable. He is neurova scularly intact. Compartments are soft. He is alert. He is afebrile. There is redness and a smal l area of a pustule on the knee. There is no fluctuance or effusion in the knee joint. Range of mo tion of the knee is full. DIAGNOSIS: Right knee cellulitis. RECOMMENDATION: The patient is given the option of further treatment. There does not appear to be any large abscess to be treated operatively. Given the option of making a small incision or aspirat ion, the patient would like to give that further thought, and we will consider the procedure tomorro w. Dictated By: GISELA HOLLEY/STEPHON Conf#: [id number] DID#: [id number]
[2016-06-18 06:02] LABS: ADD SCAN DIFF NO
[2016-06-18 06:20] LABS: BASOPHILS % 0.4 % (0.0-2.0); EOSINOPHILS # 0.3 10^3/ul (0.0-0.5); EOSINOPHILS % 4.5 % (0.0-7.0); HEMATOCRIT 42.1 % (42.0-52.0); HEMOGLOBIN 13.6 g/dl (14.0-18.0); LYMPHOCYTES # 2.1 10^3/ul (0.8-2.9); LYMPHOCYTES % 29.1 % (15.0-51.0); MEAN CORPUSCULAR HEMOGLOBIN 28.4 pg (29.0-33.0); MEAN CORPUSCULAR HGB CONC 32.3 g/dl (32.0-37.0); MEAN CORPUSCULAR VOLUME 87.9 fl (82.0-101.0); MEAN PLATELET VOLUME 9.3 fl (7.4-10.4); MONOCYTE # 0.5 10^3/ul (0.3-0.9); MONOCYTES % 6.7 % (0.0-11.0); NEUTROPHIL # 4.2 10^3/ul (1.6-7.5); NEUTROPHILS % 58.5 % (39.0-77.0); PLATELET COUNT 421 10^3/UL (140-415); RED BLOOD COUNT 4.79 10^6/ul (4.70-6.10); RED CELL DISTRIBUTION WIDTH 12.3 % (11.5-14.5); WHITE BLOOD COUNT 7.1 10^3/ul (4.8-10.8)
[2016-06-18 06:37] LABS: CREATININE 1.07 mg/dl (0.61-1.24)
[2016-06-18 08:05] VITALS: BP 139/92; RESP 20
[2016-06-18] MEDS: FAMOTIDINE 20 MG TAB PO SCH (09:19)
[2016-06-18] MEDS: VANCOMYCIN 1.5 GM in SOD CHLORIDE 0.9% 250 ML IVPB SCH (09:22)
[2016-06-18] MEDS: HYDROCHLOROTHIAZIDE 25 MG TAB PO SCH (09:22)
[2016-06-18] MEDS: NEOMYC/POLYMYX/BACIT 30 GM OINT TOP SCH (09:23)
[2016-06-18] MEDS: ENOXAPARIN 40 MG/0.4 ML SYG SC SCH (09:24)
[2016-06-18] MEDS ORDERED: SULF1TAB31 PO (10:45)
[2016-06-18] MEDS ORDERED: CEPH-443 PO (10:45)
--- NOTE | 2016-06-18 10:46 | PDOCDIS ---
Discharge Instructions CONDITION Patient Condition: Good HOME CARE INSTRUCTIONS: Diet Instructions: Regular ACTIVITY: Activity Restrictions: No Restrictions FOLLOW UP/APPOINTMENTS Appointments F/U WITH YOUR PCP IN 1-2 WEEKS LUCA JACOBO Jun 18, 2016 10:46
[2016-06-18] MEDS ORDERED: VANCOMYCIN 1 GM in NS 250 ML IVPB SCH (13:00)
--- NOTE | 2016-06-18 16:54 | DS ---
DATE OF ADMISSION: 06/13/2016 DATE OF DISCHARGE: 06/18/2016 DISCHARGE DIAGNOSES: 1. Cellulitis of right knee secondary to abscess with self-drainage with p.o. antibiotics. No jie cation for incision and drainage per orthopedics. 2. Acute kidney injury likely secondary to dehydration, resolved. HOSPITAL COURSE: The patient is a 35-year-old male with no medical history. The patient presents w ith 1 week of right leg redness and swelling. The patient received Bactrim with Keflex for 7 days a nd the redness and swelling did not improve. The patient did have x-ray at an outside hospital that showed no dislocation, soft tissue swelling superior to the patella. The patient did have an eleva abiola white count, did resolve with vancomycin. The patient was seen by orthopedics and it was felt t hat the patient does not need any I and D. The patient abscess wounds were already draining on its own. Swelling did improve significantly with antibiotics. He was felt stable for discharge. On da y of discharge, the patient's vitals and labs were stable. He had no acute complaints and his quest ions were answered. CONDITION ON DISCHARGE: Stable. DISPOSITION: To home. MEDICATIONS: The patient was given a prescription for Keflex 500 mg p.o. q.i.d. for 7 days as well as Bactrim double strength 1 tab p.o. b.i.d. for 7 days. The patient continues home medications. FOLLOWUP: The patient is to follow up with his PCP in 1 to 2 weeks. Greater than 30 minutes was spent coordinating discharge of patient. Dictated By: LUCA MENDIETA/STEPHON Conf#: [id number] DID#: [id number]
== END 2016-06-18 13:10 | disposition home or self-care (01) | DRG 603 ==
LOC: E/R 18:22 → MS2 23:54
PROVIDERS: ADMIT Family Medicine; ATTEND Family Medicine
PROC: 0Y9F3ZZ Drainage of Right Knee Region, Percutaneous Approach (ICD-10-PCS; principal; 2016-06-17)
DX: L03.115 Cellulitis of right lower limb (principal); N17.9 Acute kidney failure, unspecified; E86.0 Dehydration
CPT/HCPCS: 36415; 73562; 80048; 80053; 80202; 82565; 83735; 84520; 85025; 87040; 96365; 96366; 96368; 96375; 96376; J1650; J2270; J2405; J2543; J3370; J7030; J7050